=== PATIENT | female | born 1985 ===

== ENCOUNTER 2020-09-06 00:25 | Day surgery (SDC) | payer OTHER ==
[~2020-09-06] VITALS: Ht 154.9 cm; Wt 73.0 kg
[~2020-09-06 00:25] MED LIST: CATAFLAM50 MG PO
== END 2020-09-06 17:40 | disposition home or self-care (01) ==
LOC: ER 00:25 → CIR.AMB 08:18
PROVIDERS: ATTEND Obstetrics & Gynecology
DX: O03.4 Incomplete spontaneous abortion without complication (principal); Z20.822 Contact with and (suspected) exposure to COVID-19

== ENCOUNTER 2022-01-11 23:33 | Emergency (ER) | payer OTHER ==
[~2022-01-11] VITALS: Ht 154.9 cm; Wt 73.9 kg
[2022-01-12] MEDS ORDERED: KETO10TA2 PO (04:16)
== END 2022-01-12 04:25 ==
LOC: ER 23:33
DX: S42.92XA Fracture of left shoulder girdle, part unspecified, initial encounter for closed fracture (principal); S69.82XA Other specified injuries of left wrist, hand and finger(s), initial encounter; S59.802A Other specified injuries of left elbow, initial encounter; W19.XXXA Unspecified fall, initial encounter; Y93.89 Activity, other specified; Y92.89 Other specified places as the place of occurrence of the external cause